=== PATIENT | female | born 1980 | race Caucasian/White ===

== ENCOUNTER 2022-06-06 18:52 | Emergency (ER) | payer SELFPAY ==
[2022-06-06] MEDS ORDERED: Sodium Chloride 0.9% 10 ML Syringe FLUSH PRN (19:26)
[2022-06-06] MEDS ORDERED: Furosemide 40 MG/4 ML VIAL IVPUSH ONE ×2 (19:48→20:52)
[2022-06-06 20:30] LABS: CORONAVIRUS COVID-19 NAA NEGATIVE (NEGATIVE)
[2022-06-06] MEDS ORDERED: Sodium Polystyrene Sulfonate 15 GM/60 ML Susp 60 ML Bot PO ONE (20:51)
[2022-06-06] MEDS ORDERED: Sodium Chloride 0.9% 1,000 ML IV SCH (21:45)
== END 2022-06-06 22:07 ==
LOC: JD.ED 18:52
DX: I50.9 Heart failure, unspecified (principal); N17.9 Acute kidney failure, unspecified; D64.9 Anemia, unspecified; E87.5 Hyperkalemia; J45.909 Unspecified asthma, uncomplicated; Z72.0 Tobacco use; Z20.822 Contact with and (suspected) exposure to COVID-19
CPT/HCPCS: 0241U; 36415; 36430; 71045; 80053; 81001; 83880; 84484; 85025; 85379; 86140; 86850; 86900; 86901; 86922; 93005; 96374; 96376; 99285; A9270; J1940; J3490; J7030; P9016; 93010

== ENCOUNTER 2022-06-29 14:53 | Emergency (ER) | payer SELFPAY | END 2022-06-29 17:30 | disposition home or self-care (01) | LOC: JD.ED 14:53 | DX: N92.0 Excessive and frequent menstruation with regular cycle (principal); I11.0 Hypertensive heart disease with heart failure; I50.9 Heart failure, unspecified; J45.909 Unspecified asthma, uncomplicated; D64.9 Anemia, unspecified; Z72.0 Tobacco use; Z79.01 Long term (current) use of anticoagulants; Z79.899 Other long term (current) drug therapy | CPT/HCPCS: 36415; 80053; 84703; 85025; 86850; 86900; 86901; 99284; A9270; 99283 ==